=== PATIENT | female | born 1995 | race American Indian/Alaskan Native ===

== ENCOUNTER 2017-10-18 20:19 | Outpatient (CLI) | payer OTHER, MEDICAID ==
[2017-10-18 21:24] VITALS: BP 91/51
[2017-10-18] MEDS ORDERED: LACTATED RINGERS 1,000 ML IV ONE (21:24)
[2017-10-18 21:51] LABS: Bilirubin,Urine NEG (Negative); Blood,Urine NEG (Negative); Color,Urine Yellow (Yellow); Mucus,Urine 2+ /HPF; Protein,Urine <15 mg/dL mg/dL (Negative); Urobilinogen,Urine < 2.0 mg/dL (<2.0)
[2017-10-18] MEDS ORDERED: TYLENOL PO ONE (22:22)
== END 2017-10-19 00:37 | disposition home or self-care (01) ==
LOC: TRG 20:19
PROVIDERS: ATTEND Obstetrics & Gynecology
DX: O26.892 Other specified pregnancy related conditions, second trimester (principal); R10.9 Unspecified abdominal pain; Z3A.22 22 weeks gestation of pregnancy
CPT/HCPCS: 59025; 81001; 96360; J7120; 96361

== ENCOUNTER 2018-01-23 23:44 | Inpatient (IN) | payer OTHER, MEDICAID ==
[2018-01-24] MEDS ORDERED: LACTATED RINGERS 1,000 ML ONE (00:33)
[2018-01-24] MEDS ORDERED: LACTATED RINGERS 1,000 ML IV ONE (01:19)
[2018-01-24] MEDS ORDERED: BRETHINE IVP PRN (01:27)
[2018-01-24] MEDS ORDERED: BRETHINE SUB-Q PRN (01:27)
[2018-01-24] MEDS ORDERED: XYLOCAINE 2% INFILTRATI ONE ×2 (01:27→19:58)
[2018-01-24] MEDS ORDERED: POLYCILLIN/NS 2 GM/100 ML 2 GM/100 ML BAG IV ONE (01:27)
[2018-01-24] MEDS ORDERED: MINERAL OIL PO PRN (01:27)
--- NOTE | 2018-01-24 01:31 | History and Physical Report ---
History of Present Illness Date of examination: 01/24/18 Chief complaint: leakage of fluid History of present illness: 22y/o @ 40+3 weeks presents to triage with the complaint of leakage of fluid that appeared to be lightly meconium stained. The patient reports leaking since 1500 the previous day but did not present to L&D. She initiated care in the first trimester. Her course was uncomplicated. Her GBS and HSV status is negative. Past History Past Medical History: no pertinent history Past Surgical History: no surgical history Social history: single - Obstetrical History Expected Date of Delivery: 01/21/18 Actual Gestation: 40 Week(s) 5 Day(s) : 2 Para: 0 Hx # Term Pregnancies: 0 Number of Pregnancies: 0 Spontaneous Abortions: 1 Induced : 0 Number of Living Children: 0 Medications and Allergies Allergies Allergy/AdvReac Type Severity Reaction Status Date / Time No Known Allergies Allergy Verified 06/09/14 10:10 Home Medications Medication Instructions Recorded Confirmed Last Taken Type Vit-Fe Fumar-FA [ 1 tab PO QDAY 10/18/17 01/24/18 01/22/18 11: 00 History Vitamin] Docusate Sodium [Colace] 100 mg PO BID PRN #60 capsule 01/26/18 Unknown Rx Ibuprofen [Motrin] 800 mg PO Q8HR PRN #60 tablet 01/26/18 Unknown Rx Oxycodone HCl/Acetaminophen 1 each PO Q6HR PRN #45 tablet 01/26/18 Unknown Rx [Percocet 7.5/325 mg] Active Meds: Active Medications Lactated Ringer's (Lactated Ringers) 1,000 mls @ 999 mls/hr IV BOLUS ONE Stop: 01/24/18 02:19 Review of Systems All systems: negative - Vital Signs Vital signs: Vital Signs Temp Pulse Resp BP Pulse Ox 98.6 F 87 18 127/69 98 01/24/18 00:05 01/24/18 00:05 01/24/18 00:05 01/24/18 00:05 01/24/18 00:05 Temp Pulse Resp BP Pulse Ox 98.6 F 75 18 127/69 98 01/24/18 00:05 01/24/18 00:54 01/24/18 00:05 01/24/18 00:08 01/24/18 00:54 - Physical Exam Breasts: Positive: deferred Cardiovascular: Regular rate Lungs: Positive: Clear to auscultation Abdomen: Positive: normal appearance Results Result Diagrams: 01/25/18 16:24 All other labs normal. Assessment and Plan - Patient Problems (1) Post-term Current Visit: Yes Status: Acute Plan to address problem: Admit to labor and delivery (2) Spontaneous rupture of amniotic membranes Current Visit: Yes Status: Acute
[2018-01-24] MEDS ORDERED: PITOCin/NS 20 UNIT/1000ML DRIP 20 UNITS/1,000 ML BAG IV SCH (02:00)
[2018-01-24] MEDS ORDERED: PITOCin/NS 30 UNIT/500ML 30 UNITS/500 ML BAG IV SCH (02:00)
[2018-01-24 02:36] LABS: Basophils % (Auto) 0.4 % (0.0-1.8); Eosinophils % (Auto) 0.5 % (0.0-4.3); Hematocrit 41.1 % (30.3-42.9); Hemoglobin 12.9 gm/dl (10.1-14.3); Lymphocytes # (Auto) 1.3 K/mm3 (1.2-5.4); Lymphocytes % (Auto) 18.4 % (13.4-35.0); Mean Corpuscular HGB Conc 32 % (30-34); Mean Corpuscular Hemoglobin 22 pg (28-32); Mean Corpuscular Volume 71 fl (79-97); Monocytes # (Auto) 0.5 K/mm3 (0.0-0.8); Monocytes % (Auto) 7.3 % (0.0-7.3); Platelet Count 208 K/mm3 (140-440); Red Blood Count 5.79 M/mm3 (3.65-5.03); Red Cell Distribution Width 17.7 % (13.2-15.2)
[2018-01-24] MEDS: STADOL IV PRN ×3 (03:30→10:09)
[2018-01-24] MEDS: LACTATED RINGERS 1,000 ML IV SCH ×3 (04:13→13:53)
[2018-01-24] MEDS: AMPICILLIN/NS 1 GM/50 ML 1 GM/50 ML BAG IV SCH ×4 (08:15→21:35)
[2018-01-24] MEDS ORDERED: NARCAN 2 MG/2 ML IV PRN (14:22)
--- NOTE | 2018-01-24 14:22 | Anesthesia Consultation ---
Anesthesia Consult and Med Hx Date of service: 01/24/18 - Airway Anesthetic Teeth Evaluation: Good ROM Head & Neck: Adequate Mental/Hyoid Distance: Adequate Mallampati Class: Class III Intubation Access Assessment: Possibly Difficult - Pre-Operative Health Status ASA Pre-Surgery Classification: ASA3 Proposed Anesthetic Plan: Epidural, Spinal - Pulmonary Hx Asthma: No - Cardiovascular System Hx Hypertension: No - Central Nervous System Hx Seizures: No Hx Psychiatric Problems: No - Endocrine Hx Renal Disease: No Hx Hypothyroidism: No Hx Hyperthyroidism: No - Hematic Hx Anemia: No Hx Sickle Cell Disease: No - Other Systems Hx Alcohol Use: No Hx Obesity: Yes (BMI 41.2)
[2018-01-24] MEDS ORDERED: fentaNYL-BUPIV 2 MCG/ML-0.125% 200 MCG/100 ML BAG EPIDURAL SCH (15:00)
[2018-01-24] MEDS ORDERED: XYLOCAINE MPF 2% ONE ×3 (18:23→23:23)
[2018-01-25] MEDS ORDERED: REGLAN IV ONE (00:20)
[2018-01-25] MEDS ORDERED: BICITRA PO ONE (00:20)
[2018-01-25] MEDS ORDERED: PEPCID IV ONE (00:20)
--- NOTE | 2018-01-25 00:26 | Event Note ---
Date: 01/25/18 Patient was noted to be 6cm at present approximately 4 hrs after last check. Adequate contractions. Patient stated " I'm tired". The family and myself discussed mgt of continuing with pitocin for aumentation vs cesarea. Despite contractions there was no change in her cervix therefore failure to dilate. We discussed r/b/a of primary csec which include but not limitee to bleeding infection damage to pelvic and non pelvic organs risk of hysterectomy and , risk of injury to the baby risk of chronic pelvic pain and blood clots. She understands risk and deisres to proceed with csec. patient signed consents. Awaiting OR as another case proceeds. Currently strip is cat 1.
[2018-01-25] MEDS ORDERED: ANCEF/STERILE WATER 2 GM/20 ML 2 GM/20 ML SYRINGE IV NR (01:00)
[2018-01-25] MEDS ORDERED: LACTATED RINGERS 1,000 ML IV SCH (01:00)
[2018-01-25] MEDS ORDERED: PITOCin/NS 20 UNIT/1000ML DRIP 20 UNITS/1,000 ML BAG IV SCH ×2 (01:00→06:00)
[2018-01-25 01:34] LABS: Hematocrit 39.2 % (30.3-42.9); Hemoglobin 12.1 gm/dl (10.1-14.3); Mean Corpuscular HGB Conc 31 % (30-34); Mean Corpuscular Volume 72 fl (79-97); Platelet Count 190 K/mm3 (140-440); Red Blood Count 5.45 M/mm3 (3.65-5.03); Red Cell Distribution Width 17.4 % (13.2-15.2)
[2018-01-25 01:45] LABS: Mean Corpuscular Hemoglobin 22 pg (28-32)
--- NOTE | 2018-01-25 02:02 | Anesthesia Day of Surgery ---
Anesthesia Day of Surgery - Day of Surgery Patient Examined: Yes Patient H&P Reviewed: Yes Patient is NPO: Yes
[2018-01-25] MEDS ORDERED: BICITRA ONE (04:07)
[2018-01-25 04:25] LABS: Basophils % (Manual) 0 % (0.0-1.8); Eosinophils % (Manual) 0 % (0.0-4.3); Hypochromasia 1+; Total Cells Counted 200
[2018-01-25 04:26] LABS: Platelet Estimate Consistent w Auto
[2018-01-25] MEDS ORDERED: ANCEF/STERILE WATER 2 GM/20 ML 2 GM/20 ML SYRINGE IV ONE (04:41)
[2018-01-25] MEDS ORDERED: NEO SYNEPHRINE/NS Syringe(OR USE) IV ONE (04:51)
[2018-01-25] MEDS ORDERED: VERSED ONE (04:56)
[2018-01-25] MEDS ORDERED: SUBLIMAZE ONE (05:07)
[2018-01-25] MEDS ORDERED: MORPHINE ONE (05:28)
[2018-01-25] MEDS ORDERED: NACL 0.9% 1000 ML 1,000 ML ONE (05:34)
--- NOTE | 2018-01-25 05:41 | Procedure Note ---
OB Delivery Note - Delivery Date of Delivery: 01/25/18 Surgeon: CONRAD SANCHEZ Estimated blood loss: 500cc - Section Preop diagnosis: arrest of dilation Postop diagnosis: same section procedure: section Disposition: PACU Complications: none Narrative: see op note - A at 1 minute: 8 at 5 minutes: 9 Infant Gender: Male
[2018-01-25] MEDS ORDERED: MYLICON PO PRN (05:47)
[2018-01-25] MEDS ORDERED: TORADOL IV PRN (05:47)
[2018-01-25] MEDS ORDERED: PHENERGAN PR PRN (05:47)
[2018-01-25] MEDS ORDERED: MORPHINE IV PRN (05:47)
[2018-01-25] MEDS ORDERED: NARCAN 0.4 MG/1 ML IV PRN (05:47)
[2018-01-25] MEDS ORDERED: ZOFRAN IV PRN (05:47)
[2018-01-25] MEDS ORDERED: NORCO 5/325 PO PRN (05:47)
[2018-01-25] MEDS ORDERED: SENOKOT PO PRN (05:47)
[2018-01-25] MEDS ORDERED: MILK OF MAGNESIA PO PRN (05:47)
[2018-01-25] MEDS ORDERED: LANSINOH TP PRN (05:47)
[2018-01-25] MEDS ORDERED: TUCKS PAD TP PRN (05:47)
--- NOTE | 2018-01-25 05:47 | Operative Report ---
Operative Report Operative Report: DATE OF OPERATION: 01/25/18 PREOPERATIVE DIAGNOSES: 1. Intrauterine gestation at 40+3 weeks, in active labor, second stage. 2. Arrest of dilatation POSTOPERATIVE DIAGNOSES: 1.-2 GINA 3. Meconium OPERATION PERFORMED: Primary low transverse section. SURGEON: Julia Sauceda MD ANESTHESIA: Epidural. COMPLICATIONS: None. ESTIMATED BLOOD LOSS: 500 mL. DRAINS: Jacobs catheter to the bladder. SPECIMENS TO PATHOLOGY: Cord blood for routine testing. OPERATIVE FINDINGS: A viable male infant with Apgars of 8 and 9 and birthweight of 6 pounds 14 ounces was delivered from a cephalic presentation, persistent occiput posterior position. There was marked caput and molding present on the head. The cord contained 3 vessels. There was normal anterior fundal placenta. The amniotic fluid was stained with meconium. The uterus, fallopian tubes and ovaries were normal. DESCRIPTION OF OPERATION: The patient was brought to the operating suite in stable condition with epidural anesthesia on board and an indwelling catheter in place in the bladder. The patient was placed supine on the operating room table and rolled to her left side with a wedge. The abdomen was prepped and draped in standard fashion for section. After testing with forceps to assure an adequate anesthetic level, the surgery was commenced. We had counseled the patient extensively regarding the risks of the surgery including but not limited to stroke, embolus, phlebitis, pain, infection, hemorrhage, as well as injury to the and the internal organs such as the bowel, bladder, blood vessels, nerves, kidneys, ureters and pelvic organs. The patient was aware of the postoperative morbidity issues and recovery timeframes. The patient was aware she can form adhesions, which can result in obstruction of loop of bowel or ureter or chronic pain. She was aware that should she have hemorrhage and require blood transfusion, there was a small chance for exposure to hepatitis or HIV disease. With the scalpel, a Pfannenstiel skin incision was made. Dissection was carried down sharply through the subcutaneous tissues and fascia in a transverse plane with the scalpel, electrocautery and curved Osorio scissors. The fascia was sharply freed up superiorly and inferiorly from the underlying rectus muscles, which were bluntly and sharply divided. The peritoneum was entered carefully in a clear space with a curved hemostat. The peritoneal incision was then extended vertically with Metzenbaum scissors. A retractor and bladder blade were placed. A bladder flap was created by incising transversely through the peritoneum and vesicouterine fold and then bluntly dissecting the bladder distally. With the scalpel, a low transverse hysterotomy was commenced. The serosa and myometrium were scored with the scalpel. The uterine cavity was actually entered bluntly with a curved hemostat. The uterine incision was then extended laterally with the flower pot press operator's fingers. An intrauterine hand was placed and the head of the was brought up out of the pelvis into the uterine incision. With fundal pressure, he was delivered without difficulty. The nasopharynx and oropharynx were suctioned. The cord was doubly clamped and transected. The infant was then handed off to the nursery personnel. Apgars were good at 8 and 9. Further cord blood was collected for routine testing. Intravenous Pitocin and antibiotics were administered. The placenta was manually removed. The uterine cavity was then curetted with a dry sponge and freed of the remaining membranes. The edges of the uterine incision were grasped with Fernandez clamps. With the massage and the Pitocin, the uterus began to firm up normally. The uterine incision was then closed in 2 layers of 0 Vicryl sutures. The first suture was placed to the endometrium and myometrium. The second suture was placed through the endopelvic fascia and also reincorporated the bladder flap peritoneum. Peritoneal lavage was then performed. The pelvis and gutters were irrigated and suctioned and cleared of all blood and clots and amniotic fluid. The uterine incision was reinspected to assure hemostasis. The uterus, tubes and ovaries were inspected and were normal. Once we were satisfied with the hemostasis, attention was turned to closure of the abdominal incision. The peritoneum, muscles and fascia were closed in layers using 0-Vicryl sutures. The subcutaneous tissue was closed with 3-0 plain sutures. The skin was closed with a subcuticular suture of 4-0 Vicryl followed by benzoin, Steri-Strips and a Telfa dressing. The patient was moved to the recovery room in stable condition with the Jacobs catheter draining clear urine. Instruments, sponge and needle counts were reported as correct. Estimated blood loss was 500 mL. There were no complications.
[2018-01-25] MEDS ORDERED: SODIUM CHLORIDE FLUSH SYRINGE 10 ML IV PRN (06:00)
[2018-01-25] MEDS: TORADOL IV PRN ×2 (06:15→17:31)
[2018-01-25] MEDS: LACTATED RINGERS 1,000 ML IV SCH ×2 (09:59→17:29)
[2018-01-25] MEDS: PRENATAL VITAMIN PO SCH (10:16)
[2018-01-25] MEDS: FEOSOL PO SCH (10:16)
[2018-01-25 16:35] LABS: Hematocrit 30.8 % (30.3-42.9); Hemoglobin 9.7 gm/dl (10.1-14.3)
[2018-01-26] MEDS ORDERED: M-M-R II VACCINE SUB-Q ONE (05:48)
[2018-01-26] MEDS: PERCOCET 5/325 PO PRN ×2 (05:50→22:27)
[2018-01-26] MEDS: MOTRIN PO PRN ×2 (05:50→12:00)
[2018-01-26] MEDS ORDERED: BOOSTRIX IM ONE (06:00)
--- NOTE | 2018-01-26 09:21 | Progress Note ---
Assessment and Plan - Patient Problems (1) Post-term Current Visit: Yes Status: Acute Plan to address problem: Routine postoperative care Advance diet to regular (2) Spontaneous rupture of amniotic membranes Current Visit: Yes Status: Acute Subjective - Subjective Date of service: 01/26/18 Interval history: The patient has had her Jacobs removed and reports being able to void. She is currently tolerating clear diet. Patient reports: appetite normal, voiding normally, pain well controlled : doing well Objective - Vital Signs Latest vital signs: Vital Signs Temp Pulse Resp BP BP Pulse Ox 01/26/18 00:00 98.0 F 77 18 97/50 01/25/18 20:10 98.0 F 89 18 102/65 01/25/18 17:31 18 01/25/18 16:28 98.5 F 91 H 20 119/55 94 01/25/18 12:15 98.4 F 87 18 113/63 96 01/25/18 09:58 82 120/74 Intake and Output 01/25/18 01/26/18 01/26/18 22:59 06:59 14:59 Intake Total 1057.5 Output Total 500 Balance 557.5 Intake: IV 937.5 Lactated Ringers 1,000 ml 937.5 @ 125 mls/hr IV DIRECT LULY Rx#:[id number] Oral 120 Output: Urine 500 Indwelling Catheter 200 Void 300 Other: Total, Intake Amount 120 Total, Output Amount 300 # Voids Void 1 - Exam Uterus: Present: normal, firm Incision: Present: dressed - Labs Labs: Abnormal lab results 01/25/18 Range/Units 16:24 Hgb 9.7 L (10.1-14.3) gm/dl
[2018-01-26] MEDS: PRENATAL VITAMIN PO SCH (10:13)
[2018-01-26] MEDS: FEOSOL PO SCH (10:13)
[2018-01-27] MEDS: PERCOCET 5/325 PO PRN ×2 (07:56→15:40)
--- NOTE | 2018-01-27 08:05 | Progress Note ---
Assessment and Plan O: VSS AF PP H/H drop from 12.1/39.2 to 9.7/30.8 A: Stable POD #2 Anemia P: Iron BID D/c am Subjective - Subjective Date of service: 01/27/18 Patient reports: appetite normal, voiding normally, pain well controlled ( minimal pain control), flatus, ambulating normally (minimal ambulation) [place]: doing well Objective - Vital Signs Latest vital signs: Vital Signs Temp Pulse Resp BP 01/27/18 01:15 98.7 F 89 18 112/69 01/26/18 23:27 16 01/26/18 22:27 20 01/26/18 17:10 98.7 F 81 20 111/54 Intake and Output 01/26/18 01/27/18 01/27/18 22:59 06:59 14:59 Intake Total 480 180 Balance 480 180 Intake: Intake, Free Water 480 180 Other: # Voids Void 2 1 - Exam Breasts: Present: deferred Abdomen: Present: normal appearance, soft, distention (mild), normal bowel sounds Vulva: both: normal Uterus: Present: normal, firm, fundal height below umbilicus Extremities: Present: normal, edema (1+) Incision: Present: normal, dry, intact, dressed
--- NOTE | 2018-01-27 08:07 | Discharge Summary ---
Providers - Providers Date of Admission: 01/24/18 02:32 Date of discharge: 01/28/18 Attending physician: KATERINA ABERNATHY Primary care physician: KATERINA ABERNATHY Hospitalization Reason for admission: IUP at term Delivery: Procedure: primary low transverse Episiotomy: none Laceration: none Incision: normal, dry, intact, dressed Other procedures: none complications: none Discharge diagnosis: IUP at term delivered [place] baby: male Condition at discharge: Good Disposition: DC-01 TO HOME OR SELFCARE Plan - Discharge Medications Prescriptions: Docusate Sodium [Colace] 100 mg PO BID PRN #60 capsule PRN Reason: Constipation Ibuprofen [Motrin] 800 mg PO Q8HR PRN #60 tablet PRN Reason: Pain, Mild (1-3) Oxycodone HCl/Acetaminophen [Percocet 7.5/325 mg] 1 each PO Q6HR PRN #45 tablet PRN Reason: Pain - Provider Discharge Summary Activity: routine, no sex for 6 weeks, no heavy lifting 4 weeks, no strenuous exercise Diet: routine Instructions: routine Additional instructions: [] Smoking cessation referral if applicable(refer to patient education folder for contact #) [] Refer to [facility] Booklet Call your doctor immediately for: * Fever > 100.5 * Heavy vaginal bleeding ( >1 pad per hour) * Severe persistent headache * Shortness of breath * Reddened, hot, painful area to leg or breast * Drainage or odor from incision. * Keep incision clean and dry at all times and follow doctor's instructions regarding bathing/showering - Follow up plan Follow up: KATERINA ABERNATHY MD [Primary Care Provider] - NATALIE DILLARD CNM [Advanced Practice Nurse] - 14 Days (RTO 2 weeks incision check)
[2018-01-27] MEDS: PRENATAL VITAMIN PO SCH (11:00)
[2018-01-27] MEDS: FEOSOL PO SCH (11:00)
[2018-01-27] MEDS: MOTRIN PO PRN (15:40)
[2018-01-28] MEDS: PRENATAL VITAMIN PO SCH (11:00)
[2018-01-28] MEDS: FEOSOL PO SCH (11:01)
[2018-01-28 17:16] VITALS: BP 142/79
== END 2018-01-28 15:25 | disposition home or self-care (01) | DRG 765 ==
LOC: TRG 23:44 → LD 01-24 02:32 → OB 01-25 08:16
PROVIDERS: ADMIT Obstetrics & Gynecology; ATTEND Obstetrics & Gynecology
PROC: 10D00Z1 Extraction of Products of Conception, Low, Open Approach (ICD-10-PCS; principal; 2018-01-25)
DX: O48.0 Post-term pregnancy (principal); Z68.41 Body mass index [BMI] 40.0-44.9, adult; O77.0 Labor and delivery complicated by meconium in amniotic fluid; O99.214 Obesity complicating childbirth; E66.9 Obesity, unspecified; O62.0 Primary inadequate contractions; Z3A.40 40 weeks gestation of pregnancy; Z37.0 Single live birth; O90.81 Anemia of the puerperium; D64.9 Anemia, unspecified
CPT/HCPCS: 36415; 85007; 85014; 85018; 85025; 86592; 86850; 86900; 86901; 88307; 90471; 90707; 90715; 99211; C9250; G0463; J0290; J0595; J0690; J1885; J2250; J2270; J2370; J2405; J2590; J2765; J3010; J7030; J7120